=== PATIENT | male | born 1940 | race African-American/Black ===

== ENCOUNTER 2017-04-06 18:46 | Inpatient (IN) | payer OTHER ==
[~2017-04-06] VITALS: Ht 182.9 cm; Wt 91.6 kg
--- NOTE | ~2017-04-06 | H ---
[facility] [place] [address] HISTORY AND PHYSICAL Name: SWETA HARRY Room #: 314-P ADM IN M.R.#: [id number] Admission: 04/06/17 Attend Phys: Dawit Garces Discharge: Date of : 40 Report #: [id number] THIS REPORT FOR: //name// CC: Dawit Krueger DATE OF SERVICE: 04/06/2017 ATTENDING PHYSICIAN: Dr. Garces. PRIMARY CARE PHYSICIAN: Unknown. CHIEF COMPLAINT: Shortness of air. HISTORY OF PRESENT ILLNESS: The patient is a 76-year-old male who came into the ER complaining of shortness of air. Apparently, he had an increasing cold that had been going on over a week. He has had increased shortness of air, despite doing breathing treatments at home. He does have underlying COPD and he normally wears 3 liters of oxygen just at night. He denies any significant coughing at home. He denies any choking episodes. Denies any fevers or chills. Although in the ER, he did spike a fever up to 38.7. He has had prior pneumonia. He has a high aspiration risk as he has had a stroke and has had dysphagia since. He has been feeling congested. The patient does have severe dysarthria from his prior stroke, so he is difficult to understand but he is able to answer all yes and no questions. PAST MEDICAL HISTORY: CVA with residual right-sided weakness, dysphagia and dysarthria, SC, hypertension, COPD, hyperlipidemia, tremors of left upper arm, prior acute renal failure. PAST SURGICAL HISTORY: Suprapubic catheter placement, PEG tube placement. HOME MEDICATIONS: Hydroxyurea 500 mg b.i.d., aspirin 81 mg daily, Plavix 75 mg daily, diltiazem 30 mg b.i.d., atenolol 50 mg daily, baclofen 20 mg q.i.d., Combivent inhalers 1-2 puffs q.i.d. p.r.n. and Zoloft 50 mg p.o. daily. ALLERGIES: None. SOCIAL HISTORY: The patient is a ex-smoker, having quit many years ago. He denies any drugs or alcohol use. He lives at home with his , 2 sons and a grandson. He normally gets around in a wheelchair. REVIEW OF SYSTEMS: Twelve-point review of systems was reviewed with the patient and otherwise negative unless stated in the HPI. [address] [address] HISTORY AND PHYSICAL Name: SWETA HARRY Room #: 314-P [facility].#: [id number] Admission: 04/06/17 Attend Phys: Dawit Garces Discharge: Date of : 40 Report #: [id number] PHYSICAL EXAMINATION: GENERAL: The patient is an alert male in no acute distress. VITAL SIGNS: Temperature max is 38.7, respirations 24, blood pressure is 130/70, heart rate 94, oxygen is 96% on 2 liters. HEENT: PERRLA. Oral mucosa is pink and dry. NECK: Supple. No JVD noted. CARDIAC: Normal S1, S2. No murmurs, rubs or gallops. RESPIRATORY: Breath sounds are coarse throughout, tachypneic. No acute distress. ABDOMEN: Soft, nontender, nondistended with positive bowel sounds. He does have a feeding tube in place ____. SKIN: Intact. No rashes or lesions. NEUROLOGIC: The patient is dysarthric. Speech is difficult to understand. He will follow commands. He does have weakness on the right side, but he is able to lift his arm up off the bed. He does have significant left arm intension tremor and gait was not assessed. LABORATORY DATA AND DIAGNOSTICS: WBC 14.9, hemoglobin 14.4, platelets 521. Sodium 140, potassium 3.6, BUN 21, creatinine 0.8. Lactate is 1.0. Glucose 108. Chest x-ray showed mediastinal widening. There are areas of atelectasis and infiltrates and significant medial right lung base and retrocardiac region. ASSESSMENT AND PLAN: 1. Healthcare-acquired pneumonia. The patient did spike a fever in the ER. This is improving. Continue with IV fluids. This was considered healthcare-associated pneumonia because he is regularly in an adult daycare. We will try to obtain a sputum culture if possible. Continue with breathing treatments. There is concern that he may be aspirating. We will continue to monitor this and if we are seeing aspiration concerns, we will consult speech therapy. 2. Acute on chronic respiratory failure. The patient does have some scattered wheezing. We will continue with IV steroids and breathing treatments and wean steroids as able. 3. History of peripheral vascular disease. Continue with aspirin and Plavix daily. 4. Nutrition. We will clarify his home tube feeding regimen and continue. Apparently, he does take some food by mouth. 5. Deep venous thrombosis prophylaxis, place SCDs. <ELECTRONICALLY SIGNED> By: TAHIRA Keenan 04/08/17 1920 1034 1138 Riya Parker [employer] /nt
--- NOTE | ~2017-04-06 | EKG ---
[place] [address] [facility] [place] [address] ELECTROCARDIOGRAM REPORT Name: SWETA HARRY Room #: 314-P ADM IN M.R.#: [id number] Admission: 04/06/17 Attend Phys: Dawit Garces Discharge: Date of : 40 Report #: [id number] THIS REPORT FOR: //name// [facility] ED Test Date: 2017-04-06 Test Time: 19:08:28 Pat Name: SWETA HARRY Department: Room: 314 Gender: M Sericulturist: [id number] : 1940 Requested By: Solomon Nice Order Number: [id number] MD: Dipak Juarez Measurements Intervals [place] Rate: 91 P: 24 TN: 194 QRS: 28 QRSD: 104 T: 33 QT: 364 QTc: 448 Interpretive Statements Sinus rhythm Inferior infarct, old Compared to ECG 02/14/2015 04:58:27 Atrial premature complexes no longer present Electronically Signed On 04-07-2017 10:49:15 CDT by Dipak Juarez [email or web address] <ELECTRONICALLY SIGNED> By: Dipak Juarez MD, [facility] 04/07/17 1049 07 07 Dipak Juarez MD, [facility] /EPI
[~2017-04-06 18:46] MED LIST: ACCUNEB0.63 MG/3; ACCUNEB0.63 MG/3 INH; ACETAMINOPHEN650 M5 PER TUBE; ACETAMINOPHEN650 M5 PO; ADULT LOW DOSE81 MG PER TUBE; ADVAIR HFA 115-12 GM; ALBUTEROL INH; ALBUTEROL2.5 MG/0.1 INH; ALBUTEROL2.5 MG/31 IH; ANALGESIC325 MG PO; ASMANEX0.135 G1 PO; ASMANEX0.135 GM IH; ASMANEX0.24 G1; ASMANEX0.24 G1 IH; ASMANEX0.24 G1 INH; ASPIRIN EC81 M1 PO; ASPIRIN325 PO; ASPIRIN81 M2 PO; ATENOLOL 50 MG50 M1 PER TUBE; ATENOLOL 50 MG50 M1 PO; ATENOLOL 50MG T50 M1 PER TUBE; ATENOLOL 50MG T50 M1 PO; AUGMENTIN 875875 M1 PO; BACLOFEN 10MG T10 M1; BACLOFEN 10MG T10 M1 PER TUBE; BACLOFEN 10MG T10 M1 PO; BACLOFEN 10MG T10 MG PER TUBE; BACTRIM DS TAB1 EACH PO; CEFDINIR OR; CEFDINIR300 MG PO; CEFTIN500 MG PER TUBE; CHILDREN'S160 MG/14; CIPROFLOXACIN500 M1 PO; CLOPIDOGREL PO; CLOTRIMAZOLE 1%15 G1 TOP; COMBIVENT INH; DILTIAZEM HCL30 MG PER TUBE; DILTIAZEM HCL30 MG PO; DUONEB 2.5-0.5 M3 ML IH; FINASTERIDE5 MG GT; FLAVOXATE 100 MG GT; FLOVENT HFA 1110 MCG PO; HYDREA 500 MG500 M1 PER TUBE; HYDREA 500 MG500 M1 PG; HYDREA 500 MG500 M1 PO; KEFLEX250 MG PO; LEVAQUIN 5500 MG/101 IV; LIDOCAINE 22 %/30 GM MM; LIPITOR10 MG PER TUBE; LOVASTAT10 PO; LOVASTAT40 PER TUBE; MACROBID 100 M100 M1 PO; MIRALAX17 GM PER TUBE; NASONEX17 GM NS; NEPRO CARB STE237 ML GT; NEPRO CARB STE237 ML PG; NITROGLYCERIN0.4 MG PO; NORCO 5-325 TA1 EACH PER TUBE; NORCO 5-325 TA1 EACH PO; OXYGEN; PAXIL10 MG PER TUBE; PAXIL10 MG PO; PERFOROMIS20 MCG/2 M IH; PLAVIX 75 MG TA75 MG PER TUBE; PLAVIX 75 MG TA75 MG PG; PLAVIX 75 MG TA75 MG PO; PREDNISONE 10 M10 M1; PROVENTIL; PULMICORT0.5 MG/22 INH; PYRIDIUM200 MG PO; SERTRALINE HCL100 MG PO; SERTRALINE HCL50 MG PER TUBE; VESICARE 5 MG TA5 M1 PO; ZOLOFT100 MG GT; [UNRECOGNIZED DRUG - CODE] PO; [UNRECOGNIZED DRUG - OTHER] PO
[2017-04-06 20:34] LABS: HEMATOCRIT 42.4 % (42.0-52.0); HEMOGLOBIN 14.4 gm/dL (14.0-18.0); MCH 36.7 pg (26.0-34.0); MCHC 33.8 g/dL (28.0-37.0); MCV 108.4 fL (80.0-100.0); PLATELET COUNT 521 thou/uL (150-400); RBC 3.92 mil/uL (4.50-6.00); RDW 15.2 % (10.5-14.5); WBC 14.9 thou/uL (4.0-11.0)
[2017-04-06 20:37] LABS: MANUAL DIFF YES
[2017-04-06 20:47] LABS: ANION GAP 9 mmol/L (7-16); BUN 21 mg/dL (7-18); CALCIUM 9.2 mg/dL (8.5-10.1); CHLORIDE 102 mmol/L (98-107); CO2 29 mmol/L (21-32); CREATININE 0.8 mg/dL (0.7-1.3); GLUCOSE 108 mg/dL (74-106); POTASSIUM 3.6 mmol/L (3.5-5.1); SODIUM 140 mmol/L (136-145)
[2017-04-06 20:55] LABS: TROPONIN-I < 0.04 ng/mL (<0.04-0.07)
[2017-04-06 21:35] LABS: ABSOLUTE NEUTROPHILS 13.6 thou/uL (1.4-8.2); TOTAL CELL COUNT 100
[2017-04-06 21:36] LABS: ANISOCYTOSIS 1+; MACROCYTES 1+
[2017-04-06 21:46] VITALS: BP 113/69
[2017-04-07 00:19] VITALS: BP 127/71
[2017-04-07 03:30] VITALS: BP 128/80
[2017-04-07 08:00] VITALS: BP 125/78
[2017-04-07 10:19] LABS: TSH 4.486 uIU/mL (0.358-3.740)
[2017-04-07 16:00] VITALS: BP 125/79
[2017-04-07 18:53] VITALS: BP 146/78
[2017-04-08 03:50] VITALS: BP 128/62
[2017-04-08 08:30] VITALS: BP 123/79
[2017-04-08 08:47] LABS: HEMATOCRIT 42.9 % (42.0-52.0); HEMOGLOBIN 13.8 gm/dL (14.0-18.0); MCHC 32.3 g/dL (28.0-37.0); MCV 111.5 fL (80.0-100.0); PLATELET COUNT 540 thou/uL (150-400); RBC 3.84 mil/uL (4.50-6.00); RDW 15.7 % (10.5-14.5); WBC 15.7 thou/uL (4.0-11.0)
[2017-04-08 08:49] LABS: MANUAL DIFF YES
[2017-04-08 09:10] LABS: ABSOLUTE NEUTROPHILS 13.5 thou/uL (1.4-8.2); ANISOCYTOSIS 1+; MACROCYTES 2+; PLATELET ESTIMATE INCREASED; TOTAL CELL COUNT 100
[2017-04-08 13:56] LABS: URINE BILIRUBIN NEGATIVE (Negative); URINE BLOOD 3+ (Negative); URINE COLOR YELLOW; URINE GLUCOSE-RANDOM* NEGATIVE (Negative); URINE KETONES NEGATIVE (Negative); URINE LEUKOCYTES-REFLEX 1+ (Negative); URINE PROTEIN (DIPSTICK) 2+ (Negative); URINE SPECIFIC GRAVITY 1.025 (1.003-1.035); URINE UROBILINOGEN 0.2 E.U./dl (0.2-1.0)
[2017-04-08 14:13] LABS: AMORPHOUS URATES Few /LPF (None Seen); CASTS None Seen /LPF (None Seen); SQUAMOUS 0-3 Few /LPF (0-3); URINE WBC-REFLEX 6-15 Few /HPF (0-5)
[2017-04-08 16:55] VITALS: BP 121/98
[2017-04-08 21:00] VITALS: BP 153/82
[2017-04-09 04:42] LABS: HEMATOCRIT 40.5 % (42.0-52.0); HEMOGLOBIN 13.1 gm/dL (14.0-18.0); MCH 36.4 pg (26.0-34.0); MCHC 32.4 g/dL (28.0-37.0); MCV 112.1 fL (80.0-100.0); RBC 3.61 mil/uL (4.50-6.00); RDW 15.7 % (10.5-14.5); WBC 10.5 thou/uL (4.0-11.0)
[2017-04-09 05:15] VITALS: BP 132/77
[2017-04-09 05:25] VITALS: BP 139/78
[2017-04-09] MEDS ORDERED: AUGMENTIN400 MG/53 PO (09:20)
[2017-04-09 10:45] VITALS: BP 142/73
[2017-04-09 10:57] VITALS: BP 142/73
== END 2017-04-09 14:25 | disposition home or self-care (01) | DRG 177 ==
LOC: ER 18:46 → EROBS 20:43 → 3N 20:43
PROVIDERS: Emergency Medicine; Hospitalist; Nurse Practitioner Acute Care
DX: J69.0 Pneumonitis due to inhalation of food and vomit (principal); J96.20 Acute and chronic respiratory failure, unspecified whether with hypoxia or hypercapnia; I69.351 Hemiplegia and hemiparesis following cerebral infarction affecting right dominant side; I10 Essential (primary) hypertension; J44.9 Chronic obstructive pulmonary disease, unspecified; E78.00 Pure hypercholesterolemia, unspecified; E78.5 Hyperlipidemia, unspecified; I73.9 Peripheral vascular disease, unspecified; R13.10 Dysphagia, unspecified; Z79.899 Other long term (current) drug therapy; Z93.1 Gastrostomy status; Z86.14 Personal history of Methicillin resistant Staphylococcus aureus infection; Z87.891 Personal history of nicotine dependence; I25.2 Old myocardial infarction; Z79.82 Long term (current) use of aspirin
CPT/HCPCS: 10096